=== PATIENT | male | born 1995 | race Caucasian/White ===

== ENCOUNTER 2016-12-28 13:01 | Emergency (ER) | payer OTHER ==
[~2016-12-28] VITALS: Ht 177.8 cm; Wt 114.5 kg
[~2016-12-28 13:01] MED LIST: IBUP800T25 PO
[2016-12-28 13:04] VITALS: Ht 177.8 cm; Wt 114.5 kg
[2016-12-28] MEDS ORDERED: DIPHTH/TET/ACEL PERTUSS (ADULT) 0.5 ML VIAL IM* ONE (13:30)
--- NOTE | 2016-12-28 13:54 | ERD ---
ER Documentation Chief Complaint Date/Time DATE: 12/28/16 TIME: 13:51 Chief Complaint Laceration to the head today HPI 21-year-old male presents with a superficial scalp laceration on the top of his head from getting scraped from metal bar a couple hours prior to being seen. Patient states that pain is minimal, he denies any loss of consciousness, nausea vomiting vision changes. He denies any neuro deficits. Patient does not remember his last tetanus shot ROS All systems reviewed and are negative except as per history of present illness. Medications Home Meds Active Scripts Ibuprofen* (Motrin*) 800 Mg Tab, 800 MG PO Q6H Y for PAIN AND OR ELEVATED TEMP, #30 TAB Prov:ALIYA WALTER CHERRY DIPPER 04/24/15 Allergies Allergies: Coded Allergies: No Known Allergy (Unverified , 01/11/14) PMhx/Soc Medical and Surgical Hx: pt denies Medical Hx, pt denies Surgical Hx Hx Psychiatric Problems: Yes (panic attacks) Hx Alcohol Use: No Hx Substance Use: No Hx Tobacco Use: Yes (1.5pack/day) Smoking Status: Current every day smoker Physical Exam Vitals Vital Signs Date Time Temp Pulse Resp B/P Pulse Ox O2 Delivery O2 Flow Rate FiO2 12/28/16 13:04 98.2 103 20 132/81 98 Physical Exam Const: Well-developed well-nourished no acute distress Head: Atraumatic Eyes: Normal Conjunctiva ENT: Normal External Ears, Nose and Mouth. Neck: Full range of motion..~ No meningismus. Resp: Clear to auscultation bilaterally Cardio: Regular rate and rhythm, no murmurs Abd: Soft, non tender, non distended. Normal bowel sounds Skin: 2cm scalp laceration on parietal scalp Back: No midline or flank tenderness Ext: No cyanosis, or edema Neur: Awake and alert Psych: Normal Mood and Affect Results 24 hrs Current Medications Medications (Trade) Dose Ordered Sig/Hugh Route PRN Reason Start Time Stop Time Status Last Admin Dose Admin Diphtheria/ Tetanus/Acell Pertussis (Adacel) 0.5 ml ONCE ONCE IM* 12/28/16 13:30 12/28/16 13:31 DC 12/28/16 13:33 Procedures/MDM This is a 21-year-old male presenting to the emergency department with a laceration on parietal scalp from getting scraped from a metal bar couple hours prior to being seen. Patient did not lose any consciousness, I doubt he has any acute intracranial pathology. Patient has a normal neurological exam, he is speaking clearly. In the ED the laceration was superficial and it was cleansed with normal saline. 3 kari were placed with good approximation. I have given him strict precautions return emergency department for any worsening sinus symptoms. Discussed to follow-up in 7-10 days to get the kari removed. He understands and agrees with this plan Departure Diagnosis: Primary Impression: Scalp laceration Condition: Stable Patient Instructions: First Aid: Head Injuries, Head Trauma (Traumatic Brain Injury), Laceration, Scalp Additional Instructions: FOLLOW UP WITH YOUR PRIMARY CARE PHYSICIAN TOMORROW.Return to this facility if you are not improving as expected. Take all medicines as directed. Return to this facility if you are not improving as expected. MELVI PEREZ PA-C Dec 28, 2016 13:54
== END 2016-12-28 14:14 | disposition home or self-care (01) ==
LOC: FTE 13:01
DX: S01.01XA Laceration without foreign body of scalp, initial encounter (principal); F17.210 Nicotine dependence, cigarettes, uncomplicated; W22.8XXA Striking against or struck by other objects, initial encounter; Y92.9 Unspecified place or not applicable; Z23 Encounter for immunization
CPT/HCPCS: 90471; 90715

== ENCOUNTER 2016-12-30 11:45 | Emergency (ER) | payer OTHER ==
[~2016-12-30] VITALS: Ht 177.8 cm; Wt 113.0 kg
[2016-12-30 11:47] VITALS: Ht 177.8 cm; Wt 113.0 kg
--- NOTE | 2016-12-30 12:05 | ERD ---
ER Documentation Chief Complaint Date/Time DATE: 12/30/16 TIME: 12:01 Chief Complaint staple removal from head HPI 21-year-old male presents emergency department for his wound check to his scalp laceration with kari that was placed last . Was advised to come here for 2 day wound check. Denies headache, loss of consciousness, dizziness, blurry vision, changes in vision, photophobia, facial pain, ear pain, throat pain, difficulty swallowing, neck pain, shoulder pain, chest pain, cough, hemoptysis, abdominal pain, back pain, loss of appetite, nausea, vomiting, hematochezia, diarrhea, constipation, urinary symptoms, bladder and bowel incontinences, extremity weakness, extremity tenderness, numbness or tingling sensation, difficulty walking, recent travel, recent exposure to illness, recent antibiotic use in the last 3 months, fever, chills. Allergy: Denies. PMH: Denies. Medications: Motrin. Surgery: Denies. Family history: Denies. 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 Smokes 20-36 sticks of cigarettes a day. Rarely drinks alcoholic beverages. Denies use of illegal drugs. Denies smoking, use of alcohol, use of illegal drugs. ROS All systems reviewed and are negative except as per history of present illness. Medications Home Meds Active Scripts Ibuprofen* (Motrin*) 800 Mg Tab, 800 MG PO Q6H Y for PAIN AND OR ELEVATED TEMP, #30 TAB Prov:SABA,ALIYA X. INDUSTRIAL ECONOMIST 04/24/15 Allergies Allergies: Coded Allergies: No Known Allergy (Unverified , 01/11/14) PMhx/Soc Hx Psychiatric Problems: Yes (panic attacks) Hx Alcohol Use: No Hx Substance Use: No Hx Tobacco Use: Yes (1.5pack/day) Physical Exam Vitals Vital Signs Date Time Temp Pulse Resp B/P Pulse Ox O2 Delivery O2 Flow Rate FiO2 12/30/16 11:47 97.8 92 18 136/85 100 Physical Exam Const: Head: Atraumatic Eyes: Normal Conjunctiva ENT: Normal External Ears, Nose and Mouth. Neck: Full range of motion..~ No meningismus. Resp: Clear to auscultation bilaterally Cardio: Regular rate and rhythm, no murmurs Abd: Soft, non tender, non distended. Normal bowel sounds Skin: No petechiae or rashes. 2 kari to scalp. No lesions. No active bleeding. No discharge. Back: No midline or flank tenderness Ext: No cyanosis, or edema Neur: Awake and alert Psych: Normal Mood and Affect Procedures/MDM Examination: Please see physical examination. Disease process, medical treatment was explained to the patient and family member. They verbalized understanding and agreed with the medical treatment, and follow-up care. Re-evaluation: No neurological deficits. Consultation: None. Differential diagnosis: Wound check. Medical decision making: Will be discharged with final diagnosis of wound check. Medications prescribed are the following: None. Patient and family member are made aware of the side effects and adverse reactions of the medications prescribed. Instructed on when to seek emergent and medical attention in case allergic/anaphylactic reactions or severe side effects and or adverse reactions to medications. Patient and family member verbalized understanding. Patient instructed Instructed to follow-up with his PCP in 24-48 hours. Come back in 5-7 days for his staple removal. Instructed to Call 911 for chest pain, shortness of breath. Advised to come back here in ED as soon as possible for severity of symptoms which includes but not limited to: any new symptoms; shortness of breath/difficulty of breathing; cardiovascular changes; severe gastrointestinal symptoms; signs and symptoms of bleeding and or infection; signs of compartment syndrome/neurovascular changes; neurological changes/deficits. Patient and family member verbalized understanding. Upon discharge, patient is alert and oriented x 4, speaks full and clear sentences, denies pain, has no neurological deficits, has no neurovascular deficits, difficulty of breathing. Breathing even and unlabored. Lung sounds are clear to auscultation. Not in distress. Appears comfortable. Ambulatory with steady gait. Appears satisfied with care provided here in ED. Departure Diagnosis: Primary Impression: Visit for wound check Condition: Good Additional Instructions: Instructed to follow-up with his PCP in 24-48 hours. Come back in 5-7 days for his staple removal. Instructed to Call 911 for chest pain, shortness of breath. Advised to come back here in ED as soon as possible for severity of symptoms which includes but not limited to: any new symptoms; shortness of breath/difficulty of breathing; cardiovascular changes; severe gastrointestinal symptoms; signs and symptoms of bleeding and or infection; signs of compartment syndrome/neurovascular changes; neurological changes/deficits. Patient and family member verbalized understanding. DARYL LEONE Dec 30, 2016 12:04
== END 2016-12-30 12:15 | disposition home or self-care (01) ==
LOC: FTE 11:45
DX: Z48.01 Encounter for change or removal of surgical wound dressing (principal); F17.210 Nicotine dependence, cigarettes, uncomplicated
CPT/HCPCS: 99281